=== PATIENT | female | born 2005 | race Caucasian/White ===

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

== ENCOUNTER → 2024-03-21 | Outpatient (CLI) | payer OTHER, BC | LOC: LAB 09:45 → LAB SHORT 09:45 | DX: J02.9 Acute pharyngitis, unspecified (principal) | CPT/HCPCS: 87081 ==

== ENCOUNTER → 2025-01-27 | Outpatient (CLI) | payer BC, OTHER | LOC: LAB 11:48 → LAB SHORT 11:48 | DX: O09.92 Supervision of high risk pregnancy, unspecified, second trimester (principal) | CPT/HCPCS: 87081; 87150 ==

== ENCOUNTER 2025-02-21 18:48 | Inpatient (IN) | payer BC, OTHER ==
[~2025-02-21] VITALS: Ht 177.8 cm; Wt 100.4 kg
[2025-02-21] MEDS ORDERED: FentaNYL 2mcg/ml-Bup 0.1% Epd 250 ML EPI PRN (19:45)
[2025-02-21] MEDS ORDERED: ePHEDrine Sulfate 50 MG/ML 1ML Injection XX PRN (19:45)
[2025-02-21] MEDS ORDERED: Methylergonovine Maleate 0.2MG / ML 1ML Amp IM PRN (19:50)
[2025-02-21] MEDS ORDERED: Oxytocin 10 Unit / ML Vial IM PRN (19:50)
[2025-02-21] MEDS ORDERED: Tranexamic Acid 100 ML IV SCH (19:50)
[2025-02-21] MEDS ORDERED: OXYTOCIN/RINGER'S LACTATE 500 ML IV PRN (19:50)
[2025-02-21] MEDS ORDERED: Penicillin G Potassium 5,000,000 UNITS in NS 250 ML IV ONE (19:50)
[2025-02-21] MEDS ORDERED: Carboprost Tromethamine 250 MCG/ML 1ML Amp IM PRN (19:50)
[2025-02-21] MEDS ORDERED: Ondansetron HCl 2 MG / ML 2ML Vial IV PRN (19:50)
[2025-02-21] MEDS ORDERED: PRENATAL 19 TA1 EAC3 PO (19:55)
[2025-02-21 20:11] LABS: BASOPHILS ABSOLUTE AUTO 0.02 K/mm3 (0.00-0.23); BASOPHILS PERCENT AUTO 0 % (0-2); EOSINOPHILS ABSOLUTE AUTO 0.07 K/mm3 (0.00-0.68); EOSINOPHILS PERCENT AUTO 1 % (0-6); Hematocrit 31.0 % (33.0-51.0); Hemoglobin 10.4 g/dL (11.5-16.0); IMMATURE GRAN ABSOLUTE AUTO 0.08 K/mm3 (0.00-0.10); IMMATURE GRAN PERCENT AUTO 1 % (0-1); LYMPHOCYTES ABSOLUTE AUTO 2.81 K/mm3 (0.84-5.20); LYMPHOCYTES PERCENT AUTO 24 % (21-46); MONOCYTES ABSOLUTE AUTO 0.90 K/mm3 (0.16-1.47); MONOCYTES PERCENT AUTO 8 % (4-13); Mean Corpuscular HGB Conc 33.5 g/dL (31.5-36.5); Mean Corpuscular Volume 93 fL (80-100); NEUTROPHILS ABSOLUTE AUTO 7.77 K/mm3 (1.96-9.15); NEUTROPHILS PERCENT AUTO 67 % (41-73); NRBC ABSOLUTE 0.00 K/mm3 (0.00-0.02); NRBC Auto 0.0 /100 WBC (0.0-0.2); Platelet Count 195 K/mm3 (150-400); RDW Coefficient Variation 13.1 % (11.7-14.2); RDW Standard Deviation 44.6 fL (35.1-46.3)
[2025-02-21 21:02] VITALS: BP 118/67
[2025-02-21 21:33] VITALS: BP 109/59
[2025-02-21 22:04] VITALS: BP 108/59
[2025-02-21 22:34] VITALS: BP 120/66
[2025-02-21] MEDS ORDERED: FentaNYL Citrate 50 MCG/ML 2 ML Injection IV PRN (23:40)
[2025-02-21] MEDS ORDERED: OXYTOCIN/RINGER'S LACTATE 500 ML IV SCH (23:40)
[2025-02-22] VITALS (12 sets, daily range): BP systolic 102–136; BP diastolic 58–85
[2025-02-22] MEDS ORDERED: Penicillin G Potassium 2,500,000 UNITS in Dextrose 5% 100 ML IV SCH (01:00)
[2025-02-23] VITALS (52 sets, daily range): BP systolic 93–130; BP diastolic 50–74
[2025-02-23] MEDS ORDERED: D5W-LR 1,000 ML IV SCH ×2 (02:10→11:30)
[2025-02-23] MEDS ORDERED: OXYTOCIN/RINGER'S LACTATE 500 ML IV SCH (06:10)
[2025-02-23] MEDS ORDERED: D5W-LR 1,000 ML IV ONE (11:33)
[2025-02-23] MEDS ORDERED: Witch Hazel/Glycerin PADS TOP PRN (17:45)
[2025-02-23] MEDS ORDERED: OXYTOCIN/RINGER'S LACTATE 500 ML IV PRN (17:45)
[2025-02-23] MEDS ORDERED: FLU VACC TS2025-26(6MOS UP)/PF 45 MCG/0.5 ML SYRINGE IM SCH (17:45)
[2025-02-23] MEDS ORDERED: Ketorolac Tromethamine 30mg Vial IV PRN (17:45)
[2025-02-23] MEDS ORDERED: Benzocaine Topical Anesthetic Spray 60GM TOP PRN (17:45)
[2025-02-23] MEDS ORDERED: Methylergonovine Maleate 0.2MG / ML 1ML Amp IM PRN (17:50)
[2025-02-23] MEDS ORDERED: Rho(D) Immune Globulin 300 MCG / SYR IM ONE (17:50)
[2025-02-24 00:10] VITALS: BP 116/58
[2025-02-24 03:32] VITALS: BP 123/71
[2025-02-24 07:15] VITALS: BP 112/64
[2025-02-24] MEDS ORDERED: Prenatal Vit/FE Fumarate/FA 1 Tab PO SCH (09:00)
[2025-02-24 13:27] VITALS: BP 116/73
[2025-02-24 16:54] VITALS: BP 106/65
== END 2025-02-24 19:43 | disposition home or self-care (01) | DRG 807 ==
LOC: OBS 18:48 → BC 18:54
PROVIDERS: Obstetrics & Gynecology; ADMIT Family Medicine
PROC: 4A1HXCZ Monitoring of Products of Conception, Cardiac Rate, External Approach (ICD-10-PCS; 2025-02-21)
PROC: 3E0P7VZ Introduction of Hormone into Female Reproductive, Via Natural or Artificial Opening (ICD-10-PCS; 2025-02-21)
PROC: 3E033VJ Introduction of Other Hormone into Peripheral Vein, Percutaneous Approach (ICD-10-PCS; 2025-02-22)
PROC: 0U7C7DJ Dilation of Cervix with Intraluminal Device, Temporary, Via Natural or Artificial Opening (ICD-10-PCS; 2025-02-22)
PROC: 10E0XZZ Delivery of Products of Conception, External Approach (ICD-10-PCS; principal; 2025-02-23)
PROC: 10H073Z Insertion of Monitoring Electrode into Products of Conception, Via Natural or Artificial Opening (ICD-10-PCS; 2025-02-23)
PROC: 4A1H7CZ Monitoring of Products of Conception, Cardiac Rate, Via Natural or Artificial Opening (ICD-10-PCS; 2025-02-23)
PROC: 10H07YZ Insertion of Other Device into Products of Conception, Via Natural or Artificial Opening (ICD-10-PCS; 2025-02-23)
PROC: 10907ZC Drainage of Amniotic Fluid, Therapeutic from Products of Conception, Via Natural or Artificial Opening (ICD-10-PCS; 2025-02-23)
DX: O69.89X0 Labor and delivery complicated by other cord complications, not applicable or unspecified (principal); Z37.0 Single live birth; O48.0 Post-term pregnancy; Z3A.40 40 weeks gestation of pregnancy; O76 Abnormality in fetal heart rate and rhythm complicating labor and delivery; O26.893 Other specified pregnancy related conditions, third trimester; O99.824 Streptococcus B carrier state complicating childbirth; O99.344 Other mental disorders complicating childbirth; F41.8 Other specified anxiety disorders; O69.81X0 Labor and delivery complicated by cord around neck, without compression, not applicable or unspecified; O71.82 Other specified trauma to perineum and vulva; Z67.41 Type O blood, Rh negative; Z91.040 Latex allergy status
CPT/HCPCS: 85025; 86850; 86900; 86901; A9270; J2405; J2540; J2590; J3010; J7050; J7120; J7121